=== PATIENT | male | born 1990 | race Caucasian/White ===

== ENCOUNTER 2018-08-06 20:37 | Emergency (ER) | payer OTHER ==
[~2018-08-06] VITALS: Ht 185.4 cm; Wt 97.7 kg
[2018-08-06 20:41] VITALS: BP 131/80; TEMP 98.2
[2018-08-06] MEDS ORDERED: FLEXERIL5 MG PO (20:55)
[2018-08-06 22:25] VITALS: PULSE 81
== END 2018-08-06 22:25 | disposition home or self-care (01) ==
LOC: COL.ER 20:37
DX: S61.210A Laceration without foreign body of right index finger without damage to nail, initial encounter (principal); Z23 Encounter for immunization; W25.XXXA Contact with sharp glass, initial encounter; Y92.009 Unspecified place in unspecified non-institutional (private) residence as the place of occurrence of the external cause